=== PATIENT | female | born 1960 | race Caucasian/White ===

== ENCOUNTER 2017-02-13 07:55 | Inpatient (IN) | payer MEDICAID, OTHER ==
[2017-02-13 08:07] VITALS: BMI 39.3
[2017-02-13 09:46] LABS: HEMOGLOBIN 10.6 g/dL (11.0-16.0); LYMPH # 1.3 K/uL (1.0-4.3); MONO # 0.4 K/uL (0.0-0.8); NEUT # 1.6 K/uL (1.8-7.0)
[2017-02-13 09:51] LABS: EOS # 0.3 K/uL (0.0-0.7); EOS % 7.3 % (0.0-4.0); LYMPH % 36.5 % (20.0-40.0); MEAN CELL VOLUME 88.8 fL (81.0-99.0); MEAN CORPUSCULAR HEMOGLOBIN 27.6 pg (27.0-31.0); MEAN CORPUSCULAR HGB CONC 31.1 g/dL (33.0-37.0); MEAN PLATELET VOLUME 10.8 fL (7.2-11.7); MONO % 11.6 % (0.0-10.0); NEUT % 43.6 % (50.0-75.0); NRBC % 0.1 % (0.0-2.0); RBC 3.84 Mil/uL (3.80-5.20); RED CELL DISTRIBUTION WIDTH 16.2 % (11.5-14.5); WHITE BLOOD COUNT 3.6 K/uL (4.8-10.8)
[2017-02-13 09:56] LABS: ALBUMIN 3.6 g/dL (3.5-5.0)
[2017-02-13 09:58] LABS: GFR AFRICAN-AMERICAN > 60; GFR NON-AFRICAN AMERICAN > 60
[2017-02-13 09:59] LABS: ALB/GLOB RATIO 1.1 (1.0-2.1); ALT/SGPT 28 U/L (9-52); AST/SGOT 20 U/L (14-36); BLOOD UREA NITROGEN 18 mg/dL (7-17)
[2017-02-13 10:00] LABS: CALCIUM 9.4 mg/dl (8.6-10.4)
[2017-02-13 10:04] LABS: B-TYPE NATRIURETIC PEPTIDE 82.1 pg/mL (0-900)
[2017-02-13 10:06] LABS: INR 1.1; PROTHROMBIN TIME 12.3 SECONDS (9.7-12.2)
[2017-02-13 10:43] LABS: BARBITURATES, UR NEGATIVE (NEGATIVE)
[2017-02-13 10:46] LABS: PHENCYCLIDINE, UR NEGATIVE (NEGATIVE)
[2017-02-13 10:48] LABS: SQUAMOUS EPITHIAL 9 /hpf (0-5); URINE BILIRUBIN NEGATIVE (NEGATIVE); URINE BLOOD 1+ (NEGATIVE); URINE CLARITY Hazy (Clear); URINE COLOR Yellow (YELLOW); URINE GLUCOSE (UA) NORMAL (Normal); URINE LEUKOCYTE ESTERASE NEG Leu/uL (Negative); URINE NITRATE NEGATIVE (NEGATIVE); URINE PROTEIN NEGATIVE (NEGATIVE); URINE UROBILINOGEN NORMAL mg/dL (0.2-1.0)
--- NOTE | 2017-02-13 10:51 | C.PDOC ---
History Of Present Illness 56 yr old female with PMHx of schizophrenia, presents to the ER stating for the past 2 days she has been having auditory hallucinations that are hurting and states the "voices are beating me up inside". Patient also complains of body pain and pain to bilateral legs. Patient denies chest pain, SOB, nausea, vomiting, headache, SI or HI. Time Seen by Provider: 02/13/17 08:24 Chief Complaint (Nursing): Psychiatric Evaluation History Per: Patient History/Exam Limitations: no limitations Onset/Duration Of Symptoms: Days (2 days) Current Symptoms Are (Timing): Still Present Past Medical History Reviewed: Historical Data, Nursing Documentation, Vital Signs Vital Signs: Last Vital Signs Temp 98.3 F 02/13/17 12:09 Pulse 71 02/13/17 12:09 Resp 18 02/13/17 12:09 BP 120/79 02/13/17 12:09 Pulse Ox 100 02/13/17 12:58 - Medical History PMH: Anxiety, Arthritis, Bipolar Disorder, Depression, Hepatitis (Hepatitis A), HTN, Pulmonary Embolism, Schizophrenia Surgical History: Hernia Repair - [facility] Procedures GROUP PSYCHOTHERAPY (04/06/16) MEDICATION MANAGEMENT (04/06/16) MEDS MGMT FOR SUBSTANCE ABUSE TREATMENT, METHADONE MAINT (04/06/16) Family History: States: No Known Family Hx - Social History Hx Tobacco Use: Yes Hx Alcohol Use: No Hx Substance Use: Yes - Immunization History Hx Tetanus Toxoid Vaccination: No Hx Influenza Vaccination: No Hx Pneumococcal Vaccination: No Review Of Systems Except As Marked, All Systems Reviewed And Found Negative. Constitutional: Positive for: Other ((+) Body pain ) Cardiovascular: Negative for: Chest Pain Gastrointestinal: Negative for: Nausea, Vomiting Musculoskeletal: Positive for: Leg Pain (Bilateral leg pain ) Neurological: Negative for: Headache Psych: Positive for: Other ((+) Auditory hallucinations ). Negative for: Suicidal ideation Physical Exam - Physical Exam Appears: Non-toxic, No Acute Distress Skin: Warm, Dry, No Rash Head: Atraumatic, Normacephalic Eye(s): bilateral: Normal Inspection, PERRL, EOMI Oral Mucosa: Moist Neck: Normal ROM, No Midline Cervical Tenderness, No Paracervical Tenderness, Supple Chest: Symmetrical, No Tenderness Cardiovascular: Rhythm Regular, No Friction Rub, No Murmur Respiratory: Normal Breath Sounds, No Rales, No Rhonchi, No Stridor, No Wheezing Gastrointestinal/Abdominal: Normal Exam, Soft, No Tenderness, No Guarding, No Rebound Extremity: Normal ROM, No Swelling, Other ((+) 2+ pitting edema to bilateral legs ) Neurological/Psych: Oriented x3, Normal Speech, Normal Cranial Nerves, Normal Motor, Normal Sensation Gait: Steady ED Course And Treatment - Laboratory Results Result Diagrams: 02/13/17 09:38 02/13/17 09:38 O2 Sat by Pulse Oximetry: 100 (RA ) Pulse Ox Interpretation: Normal Medical Decision Making Medical Decision Making: PLAN: * Alcohol Serum * CBC * CMP * HCG * Urinalysis Lab results were reviewed and the patient was medically cleared for psych admission. The patient states that she has a history of DVT and was taking xarelto, but has not taken it in 1 week. Patient should continue taking the Xarelto for the DVT on the psych floor. Case was discussed with psychiatrist afsaneh who agrees to admit the patient to his service. Disposition - Disposition Disposition: HOSPITALIZED Disposition Time: 12:58 Condition: FAIR - Clinical Impression Clinical Impression: Schizophrenia - PA / HOUSE MOVER / Resident Statement MD/DO has reviewed & agrees with the documentation as recorded. - Scribe Statement The provider has reviewed the documentation as recorded by the Scribe Angela Gomes All medical record entries made by the Katt were at my direction and personally dictated by me. I have reviewed the chart and agree that the record accurately reflects my personal performance of the history, physical exam, medical decision making, and the department course for this patient. I have also personally directed, reviewed, and agree with the discharge instructions and disposition.
[2017-02-13 11:23] LABS: BENZODIAZEPINES, UR POSITIVE (NEGATIVE); OPIATES, UR POSITIVE (NEGATIVE)
[2017-02-13 12:58] VITALS: O2SAT 100
[2017-02-13] MEDS ORDERED: Aluminum Hydroxide/Magnesium Hydroxide Susp (30 mL) PO PRN (14:14)
--- NOTE | 2017-02-14 12:08 | PCM.BM ---
Treatment Plan Problems - Problems identified on initial assessmt Problem 1 Date Initiated: 02/14/17 Time Initiated: 12:07 Status: Active
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
--- NOTE | 2017-02-14 15:48 | PCM.BM ---
<Cuca Araiza - Last Filed: 02/14/17 15:50> Treatment Plan Problems - Problems identified on initial assessmt depression Date Initiated: 02/14/17 Time Initiated: 11:30 Assessment reference: NA Status: Active Priority: 1 Substance Abuse Date Initiated: 02/14/17 Time Initiated: 11:30 Assessment reference: NA Treatment assets and liabiliti Patient Assests: cooperative, ADL independent, cognitively intact Patient Liabilities: substance abuse - Milieu Protocol Maintain good personal hygiene: daily Encourage regular showers Maintain personal safety: every shift Educate patient to report safety concerns to staff, every shift Monitor environment for contraband/sharps Medication safety: Monitor for expected outcome, potential side effects: every shift, Assess barriers to learning: every shift, Assess readiness for medication education: every shift <Reece Mccoy - Last Filed: 02/17/17 00:22> - Diagnosis (1) Schizophrenia Status: Acute Interventions: 02/17/17 00:22 attend groups and take meds (2) Opioid abuse Status: Acute Interventions: 02/17/17 00:22 attend groups and take meds
--- NOTE | 2017-02-15 10:46 | PCM.PYCHPN ---
Psychiatric Progress Note - Psychiatric Progress Note Patient seen today, length of contact: 17 min Patient Chief Complaint: 'I am feeling much better' Problems Identified/Issues Discussed: Patient seen and evaluated, chart reviewed and discussed with the nurse. Today patient appeared more organized and less internally preoccupied. She reports improvement in her auditory and visual hallucinations. Patient remained isolated, confined and withdrawn. She reports depressed mood but denies any feelings of hopelessness and helplessness. She is taking medication and denied any side effects. She needs more time for stabilization. Supportive therapy and psychoeducation were given. Medication Change: Yes (methadone taper) Medical Record Reviewed: Yes Mental Status Examination - Cognitive Function Orientation: Person, Place, Situation, Time Memory: Intact Attention: WNL Concentration: Poor Association: WNL Fund of Knowledge: Poor - Mood Mood: Depressed, Anxious - Affect Affect: Constricted, Blunted, Depressed - Speech Speech: Soft - Formal Thought Process Formal Thought Process: Hallucinations, Loosening of associations - Suicidal Ideation Suicidal Ideation: No - Homicidal Ideation Homicidal Ideation: No Goal/Treatment Plan - Goal/Treatment Plan Need for Continued Stay: Discharge may exacerbated symptoms, Severe functional impairment Progress Toward Problem(s) and Goals/Treatment Plan: Schizoaffective disorder depressed type CBT Psychoeducation Supportive therapy, group therapy, individual therapy Prolixin 5 mg by mouth twice a day Neurontin 100 mg by mouth 3 times a day Trazodone 50 mg by mouth daily at bedtime Opioid use disorder severe CBT Psychoeducation Supportive therapy, individual therapy Use [place] for abstinence Opioid withdrawal CBT Psychoeducation Supportive therapy, individual therapy Clonidine when necessary Methadone taper Alcohol use disorder severe CBT Psychoeducation Supportive therapy, individual therapy Ativan 1 mg po Q6 hr pen Use [place] for abstinence - Smoking Cessation Smoking Cessation Initiated: No
[2017-02-15 14:07] VITALS: TEMP 98.2
[2017-02-16 09:51] VITALS: RESP 20
[2017-02-16 10:02] VITALS: BP 132/83; PULSE 77
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
== END 2017-02-16 13:14 | disposition home or self-care (01) | DRG 430 ==
LOC: C.ER 07:55 → C.5E 12:57
PROVIDERS: ADMIT Psychiatry & Neurology Psychiatry; ATTEND Psychiatry & Neurology Psychiatry
PROC: GZHZZZZ Group Psychotherapy (ICD-10-PCS; principal; 2017-02-13)
PROC: HZ42ZZZ Group Counseling for Substance Abuse Treatment, Cognitive-Behavioral (ICD-10-PCS; 2017-02-13)
PROC: HZ2ZZZZ Detoxification Services for Substance Abuse Treatment (ICD-10-PCS; 2017-02-13)
DX: F25.1 Schizoaffective disorder, depressive type (principal); Z59.0 Homelessness; I10 Essential (primary) hypertension; B15.9 Hepatitis A without hepatic coma; F11.23 Opioid dependence with withdrawal; F31.9 Bipolar disorder, unspecified; F41.1 Generalized anxiety disorder; F10.10 Alcohol abuse, uncomplicated; Z79.899 Other long term (current) drug therapy; Z86.711 Personal history of pulmonary embolism; Z87.891 Personal history of nicotine dependence

== ENCOUNTER 2017-04-27 17:08 | Emergency (ER) | payer MEDICAID, OTHER ==
[2017-04-27 17:12] VITALS: BMI 43.9
--- NOTE | 2017-04-27 17:42 | C.PDOC ---
History Of Present Illness 56-year-old female, PMHx includes heroin and alcohol abuse, generalized anxiety disorder, bipolar disorder, and depression. She reports a history of multiple psychiatric hospitalizations for depression, and anxiety, presents to the emergency department with complaints of auditory hallucinations, abdominal cramping, that is associated with non-bloody/watery diarrhea, and leg swelling. Patient denies nausea/vomiting, fevers, chills, chest pain or shortness of breath. No other complaints at this time. Time Seen by Provider: 04/27/17 17:41 Chief Complaint (Nursing): Psychiatric Evaluation History Per: Patient History/Exam Limitations: no limitations Onset/Duration Of Symptoms: Days Current Symptoms Are (Timing): Still Present Past Medical History Reviewed: Historical Data, Nursing Documentation, Vital Signs Vital Signs: Last Vital Signs Temp 98.9 F 04/27/17 17:12 Pulse 62 04/27/17 17:12 Resp 18 04/27/17 17:12 BP 140/93 H 04/27/17 17:12 Pulse Ox 98 04/27/17 18:09 - Medical History PMH: Anxiety, Arthritis, Bipolar Disorder, Depression, Hepatitis (Hepatitis A), HTN, Pulmonary Embolism, Schizophrenia Denies: Diabetes, HIV, Chronic Kidney Disease, Seizures, Sexually Transmitted Disease Surgical History: Hernia Repair - [facility] Procedures DETOXIFICATION SERVICES FOR SUBSTANCE ABUSE TREATMENT (02/13/17) GROUP SUB PLANT MANAGER FOR SUBSTANCE ABUSE, COGNITIVE BEHAVIORAL (02/13/17) GROUP PSYCHOTHERAPY (02/13/17) MEDICATION MANAGEMENT (04/06/16) MEDS MGMT FOR SUBSTANCE ABUSE TREATMENT, METHADONE MAINT (04/06/16) Family History: States: No Known Family Hx - Social History Hx Tobacco Use: Yes Hx Alcohol Use: No Hx Substance Use: Yes (heroin) - Immunization History Hx Tetanus Toxoid Vaccination: No Hx Influenza Vaccination: No Hx Pneumococcal Vaccination: No Review Of Systems Except As Marked, All Systems Reviewed And Found Negative. Constitutional: Negative for: Fever Cardiovascular: Negative for: Chest Pain, Palpitations Respiratory: Negative for: Shortness of Breath Gastrointestinal: Positive for: Abdominal Pain, Diarrhea. Negative for: Nausea , Vomiting Neurological: Negative for: Weakness, Numbness Psych: Positive for: Other (auditory hallucinations.). Negative for: Suicidal ideation Physical Exam - Physical Exam Appears: Non-toxic, No Acute Distress Skin: Warm, Dry, No Rash Head: Atraumatic, Normacephalic Eye(s): bilateral: Normal Inspection, PERRL Nose: Normal Oral Mucosa: Moist Lips: Normal Appearing Neck: Normal ROM Cardiovascular: Rhythm Regular, No Murmur Respiratory: Normal Breath Sounds, No Accessory Muscle Use Gastrointestinal/Abdominal: Soft, No Tenderness Extremity: No Deformity, Swelling Neurological/Psych: Oriented x3, Normal Speech ED Course And Treatment - Laboratory Results Result Diagrams: 04/27/17 17:37 04/27/17 17:37 O2 Sat by Pulse Oximetry: 98 Progress - Re-Evaluation Re-evaluation Note: 04/27/17 18:50 PENDING UA - Data Reviewed Data Reviewed: Lab, Old records Disposition - Disposition Disposition Time: 19:00 Condition: STABLE Forms: [employer] (Belarusian) - Clinical Impression Clinical Impression: Auditory hallucinations - Scribe Statement The provider has reviewed the documentation as recorded by the Scribe (Patel Ha) All medical record entries made by the Scribe were at my direction and personally dictated by me. I have reviewed the chart and agree that the record accurately reflects my personal performance of the history, physical exam, medical decision making, and the department course for this patient. I have also personally directed, reviewed, and agree with the discharge instructions and disposition. Physician Patient Turnover Patient Signed Over To: Obi Patel Handoff Comments: KAMILLA CHIRINOS, PAMELA, ZANAO
[2017-04-27 17:46] LABS: BASO % 0.6 % (0.0-2.0); EOS % 1.1 % (0.0-4.0); HEMATOCRIT 35.6 % (34.0-47.0); LYMPH # 1.5 K/uL (1.0-4.3); MEAN CORPUSCULAR HEMOGLOBIN 28.3 pg (27.0-31.0); MEAN CORPUSCULAR HGB CONC 32.5 g/dL (33.0-37.0); MEAN PLATELET VOLUME 10.7 fL (7.2-11.7); MONO # 0.4 K/uL (0.0-0.8); RED CELL DISTRIBUTION WIDTH 16.5 % (11.5-14.5)
[2017-04-27 17:48] LABS: CHLORIDE 100 mmol/L (98-107)
[2017-04-27 17:49] LABS: POTASSIUM 3.6 mmol/L (3.6-5.2); SODIUM 141 mmol/L (132-148)
[2017-04-27 17:51] LABS: ALB/GLOB RATIO 1.2 (1.0-2.1); ALKALINE PHOSPHATASE 98 U/L (38-126); AST/SGOT 19 U/L (14-36); BILIRUBIN,TOTAL 0.4 mg/dL (0.2-1.3); CARBON DIOXIDE 28 mmol/L (22-30); GFR AFRICAN-AMERICAN > 60
[2017-04-27 17:52] LABS: ALCOHOL SERUM < 10 mg/dl (0-10); ALT/SGPT 27 U/L (9-52); BLOOD UREA NITROGEN 11 mg/dL (7-17); CALCIUM 9.6 mg/dl (8.6-10.4); GLUCOSE,RANDOM 88 mg/dL (65-105)
[2017-04-27] MEDS ORDERED: Atropine-Diphenoxylate 0.025-2.5 mg Tab PO STA (17:58)
[2017-04-27] MEDS ORDERED: Atropine-Diphenoxylate 0.025-2.5 mg Tab ONE (19:04)
[2017-04-27 21:57] LABS: RBC URINE 1 /hpf (0-3); URINE BILIRUBIN NEGATIVE (NEGATIVE); URINE BLOOD NEGATIVE (NEGATIVE); URINE COLOR Yellow (YELLOW); URINE GLUCOSE (UA) NORMAL (Normal); URINE KETONE NEGATIVE (NEGATIVE); URINE LEUKOCYTE ESTERASE NEG Leu/uL (Negative); URINE PROTEIN NEGATIVE (NEGATIVE); URINE UROBILINOGEN NORMAL mg/dL (0.2-1.0); WBC URINE 2 /hpf (0-5)
[2017-04-28 02:58] VITALS: RESP 18; O2SAT 99
[2017-04-28 04:34] VITALS: BP 131/79; PULSE 51; TEMP 98.5
--- NOTE | 2017-04-28 09:57 | RAD ---
HISTORY: psych adm, r/o TB COMPARISON: No prior. FINDINGS: LUNGS: Mild venous congestion. Patchy left basilar airspace opacity. Small left pleural effusion. PLEURA: As above. CARDIOVASCULAR: Cardiomegaly. OSSEOUS STRUCTURES: Degenerative changes in the spine and shoulders. VISUALIZED UPPER ABDOMEN: Normal. OTHER FINDINGS: None. IMPRESSION: Mild venous congestion. Patchy left basilar airspace opacity. Small left pleural effusion. Cardiomegaly.
== END 2017-04-28 04:36 | disposition short-term general hospital (02) ==
LOC: C.ER 17:08
DX: R44.0 Auditory hallucinations (principal); I10 Essential (primary) hypertension

== ENCOUNTER 2017-05-24 06:26 | Inpatient (IN) | payer MEDICAID, OTHER ==
[2017-05-24 06:26] VITALS: BMI 43.9
[2017-05-24 08:10] LABS: BASO % 0.4 % (0.0-2.0); EOS # 0.1 K/uL (0.0-0.7); EOS % 1.3 % (0.0-4.0); HEMATOCRIT 35.2 % (34.0-47.0); LYMPH # 1.3 K/uL (1.0-4.3); LYMPH % 28.7 % (20.0-40.0); MEAN CORPUSCULAR HEMOGLOBIN 28.7 pg (27.0-31.0); MEAN CORPUSCULAR HGB CONC 32.6 g/dL (33.0-37.0); MEAN PLATELET VOLUME 10.8 fL (7.2-11.7); MONO # 0.4 K/uL (0.0-0.8); MONO % 8.6 % (0.0-10.0); WHITE BLOOD COUNT 4.5 K/uL (4.8-10.8)
[2017-05-24 08:25] LABS: CHLORIDE 99 mmol/L (98-107)
[2017-05-24 08:26] LABS: POTASSIUM 3.6 mmol/L (3.6-5.2); SODIUM 133 mmol/L (132-148)
[2017-05-24 08:28] LABS: ALB/GLOB RATIO 1.5 (1.0-2.1); ALKALINE PHOSPHATASE 104 U/L (38-126); ALT/SGPT 35 U/L (9-52); AST/SGOT 26 U/L (14-36); BILIRUBIN,TOTAL 0.6 mg/dL (0.2-1.3); BLOOD UREA NITROGEN 13 mg/dL (7-17); CARBON DIOXIDE 26 mmol/L (22-30); GFR AFRICAN-AMERICAN > 60; GLUCOSE,RANDOM 123 mg/dL (65-105); TOTAL PROTEIN 6.5 g/dL (6.3-8.3)
[2017-05-24 08:29] LABS: ALCOHOL SERUM < 10 mg/dl (0-10); CALCIUM 9.3 mg/dl (8.6-10.4)
--- NOTE | 2017-05-24 08:41 | C.PDOC ---
History Of Present Illness 57 year old female, with PMHx of heroin and alcohol abuse, anxiety, and bipolar disorder, presents to ED for evaluation of depression and suicidal ideation. Pt has PMHx of HTN, notes she is not compliant with her medications. Patient denies HI, chest pain, shortness of breath, abdominal pain, fever, or any other active physical complaints at this time. Time Seen by Provider: 05/24/17 07:01 Chief Complaint (Nursing): Psychiatric Evaluation History Per: Patient History/Exam Limitations: no limitations Onset/Duration Of Symptoms: Gradual Current Symptoms Are (Timing): Still Present Suicide/Self Injury Attempted (Context): None Modifying Factor(s): Alcohol Severity: None Pain Scale Rating Of: 0 Associated Symptoms: Depression, Suicidal Thoughts Involuntary Hold By: None Recent travel outside of the [place]: No Additional History Per: Prior Records Past Medical History Reviewed: Historical Data, Nursing Documentation, Vital Signs Vital Signs: Last Vital Signs Temp 99.1 F 05/24/17 15:03 Pulse 55 L 05/24/17 15:03 Resp 20 05/24/17 15:03 BP 175/85 H 05/24/17 15:03 Pulse Ox 100 05/24/17 15:03 - Medical History PMH: Anxiety, Arthritis, Bipolar Disorder, Depression, Hepatitis (Hepatitis A), HTN, Pulmonary Embolism, Schizophrenia Denies: Diabetes, HIV, Chronic Kidney Disease, Seizures, Sexually Transmitted Disease Surgical History: Hernia Repair - [facility] Procedures DETOXIFICATION SERVICES FOR SUBSTANCE ABUSE TREATMENT (02/13/17) GROUP ELECTRONIC ASSEMBLER GROUP LEADER FOR SUBSTANCE ABUSE, COGNITIVE BEHAVIORAL (02/13/17) GROUP PSYCHOTHERAPY (02/13/17) MEDICATION MANAGEMENT (04/06/16) MEDS MGMT FOR SUBSTANCE ABUSE TREATMENT, METHADONE MAINT (04/06/16) Family History: States: Unknown Family Hx - Social History Hx Tobacco Use: Yes Hx Alcohol Use: Yes Hx Substance Use: Yes (heroin) - Immunization History Hx Tetanus Toxoid Vaccination: No Hx Influenza Vaccination: No Hx Pneumococcal Vaccination: No Review Of Systems Except As Marked, All Systems Reviewed And Found Negative. Constitutional: Negative for: Fever, Chills Cardiovascular: Negative for: Chest Pain, Palpitations Respiratory: Negative for: Shortness of Breath Gastrointestinal: Negative for: Nausea, Vomiting, Abdominal Pain Neurological: Negative for: Headache Psych: Positive for: Depression, Suicidal ideation Physical Exam - Physical Exam Appears: Non-toxic, No Acute Distress Skin: Normal Color, Warm, Dry Head: Atraumatic, Normacephalic Eye(s): bilateral: Normal Inspection, EOMI Nose: Normal Oral Mucosa: Moist Neck: Normal ROM, Supple Chest: Symmetrical Cardiovascular: Rhythm Regular Respiratory: Normal Breath Sounds, No Accessory Muscle Use Gastrointestinal/Abdominal: Soft, No Tenderness Extremity: Normal ROM Neurological/Psych: Oriented x3, Normal Speech ED Course And Treatment - Laboratory Results Result Diagrams: 05/24/17 08:01 05/24/17 08:01 O2 Sat by Pulse Oximetry: 100 (RA) Pulse Ox Interpretation: Normal Progress Note: Blood work, UA ordered and reviewed. On re-eval, patient is resting comfortably, and is in no acute distress. Pt is requesting anxiety medicaiton. Atarax ordered. Patient was assessed by Dr. Mejia and admitted for schizophrenia, Disposition - Disposition Disposition: HOSPITALIZED Disposition Time: 15:00 Condition: STABLE - Clinical Impression Clinical Impression: Schizophrenia, Major depression - PA / CAD SPECIALIST / Resident Statement MD/DO has reviewed & agrees with the documentation as recorded. - Scribe Statement The provider has reviewed the documentation as recorded by the Scribe Luciano Marcelino All medical record entries made by the Scribe were at my direction and personally dictated by me. I have reviewed the chart and agree that the record accurately reflects my personal performance of the history, physical exam, medical decision making, and the department course for this patient. I have also personally directed, reviewed, and agree with the discharge instructions and disposition.
[2017-05-24 10:18] LABS: RBC URINE < 1 /hpf (0-3); URINE BILIRUBIN NEGATIVE (NEGATIVE); URINE BLOOD NEGATIVE (NEGATIVE); URINE COLOR Yellow (YELLOW); URINE GLUCOSE (UA) NORMAL (Normal); URINE KETONE 1+ mg/dL (NEGATIVE); URINE LEUKOCYTE ESTERASE NEG Leu/uL (Negative); URINE PROTEIN NEGATIVE (NEGATIVE); URINE UROBILINOGEN NORMAL mg/dL (0.2-1.0); WBC URINE 1 /hpf (0-5)
--- NOTE | 2017-05-24 16:30 | PCM.BM ---
Treatment Plan Problems - Problems identified on initial assessmt Depression Date Initiated: 05/24/17 Time Initiated: 16:29 Assessment reference: NA Status: Active Subsance Date Initiated: 05/24/17 Time Initiated: 16:32 Assessment reference: NA Status: Active Treatment assets and liabiliti Patient Assests: cooperative, ADL independent, cognitively intact
--- NOTE | 2017-05-24 16:34 | PCM.BM ---
<Leonila Jerome M - Last Filed: 05/24/17 16:33> Treatment Plan Problems - Problems identified on initial assessmt Depression Date Initiated: 05/24/17 Time Initiated: 16:29 Assessment reference: NA Status: Active Subsance Date Initiated: 05/24/17 Time Initiated: 16:32 Assessment reference: NA Status: Active Treatment assets and liabiliti Patient Assests: cooperative, motivated, ADL independent, physically healthy, negotiates basic needs, cognitively intact Patient Liabilities: live alone, financial problems, poor support system, substance abuse <Rebeca Webb - Last Filed: 05/26/17 13:21> Family Contact Family involvement: Famliy/SO not involved - Goals for Treatment Patient goals for treatment: "I want to go home." Discharge/Continuing Care - Education Needs Education Needs: Patient Medication, Patient Coping Skills, Patient Placement options, Patient Community resources - Discharge Discharge Criteria: Tolerates medication w/o severe side effects, No longer exhibiting s/s of withdrawal, Reduction of target symptoms Discharge to:: Home - Treatment Team Participation Discussed with Family/SO: No Was Patient/Family/SO present at Treatment Team Meeting: Yes <Robert Lynn M - Last Filed: 05/26/17 18:36> - Diagnosis (1) Schizoaffective disorder Status: Acute Interventions: Assess/adjust medications daily and/or as needed SEE patient on him individual basis 7x/week to assess status of hallucinations. Discuss risks, benefits, side effects and alternatives of medications. 05/26/17 18:35 (2) Opiate dependence Status: Acute Interventions: Assess 7x/week regarding severity of withdrawal Educated regarding risks, benefits, side effects and alternatives of medications Used motivational interview for abstinence Used CBT for relapse prevention Medication management for withdrawal symptoms Encouraged medication assisted treatment 05/26/17 18:34
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
[2017-05-26 08:03] VITALS: BP 166/90; PULSE 64; RESP 16; TEMP 98.1; O2SAT 99
[2017-05-26] MEDS ORDERED: guaiFENesin 100 mg/5 ml Syrup UD PO PRN (13:24)
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
[2017-05-27] MEDS ORDERED: Influenza Vaccine 60 mcg/0.5 mL SYR (4YR UP) IM ONE (10:00)
== END 2017-05-26 14:30 | disposition home or self-care (01) | DRG 744 ==
LOC: C.ER 06:26 → C.5E 14:31
PROVIDERS: ADMIT Psychiatry & Neurology Psychiatry; ATTEND Psychiatry & Neurology Psychiatry
PROC: HZ2ZZZZ Detoxification Services for Substance Abuse Treatment (ICD-10-PCS; principal; 2017-05-24)
PROC: HZ59ZZZ Individual Psychotherapy for Substance Abuse Treatment, Supportive (ICD-10-PCS; 2017-05-24)
DX: F11.23 Opioid dependence with withdrawal (principal); F25.9 Schizoaffective disorder, unspecified; F10.10 Alcohol abuse, uncomplicated; Y90.0 Blood alcohol level of less than 20 mg/100 ml

== ENCOUNTER 2017-08-25 12:38 | Inpatient (IN) | payer MEDICAID, OTHER ==
[2017-08-25 12:39] VITALS: BMI 43.9
--- NOTE | 2017-08-25 14:10 | C.PDOC ---
History Of Present Illness 57 y/o female presents to the ER for psychiatric evaluation. Patient states that she wants to hurt herself and she wants to overdose on meds. Patient denies having any other medical complaints. Time Seen by Provider: 08/25/17 13:55 Chief Complaint (Nursing): Psychiatric Evaluation History Per: Patient History/Exam Limitations: no limitations Onset/Duration Of Symptoms: Days Current Symptoms Are (Timing): Still Present Past Medical History Reviewed: Historical Data, Nursing Documentation, Vital Signs Vital Signs: Last Vital Signs Temp 98.6 F 08/25/17 16:52 Pulse 55 L 08/25/17 16:52 Resp 18 08/25/17 16:52 BP 123/77 08/25/17 16:52 Pulse Ox 99 08/25/17 18:08 - Medical History PMH: Anxiety, Arthritis, Bipolar Disorder, Depression, Hepatitis (Hepatitis A), HTN, Pulmonary Embolism, Schizophrenia Denies: Diabetes, HIV, Chronic Kidney Disease, Seizures, Sexually Transmitted Disease Surgical History: Hernia Repair - [facility] Procedures DETOXIFICATION SERVICES FOR SUBSTANCE ABUSE TREATMENT (05/24/17) GROUP BATTERY CHECKER FOR SUBSTANCE ABUSE, COGNITIVE BEHAVIORAL (02/13/17) GROUP PSYCHOTHERAPY (02/13/17) INDIV PSYCHOTHERAPY FOR SUBSTANCE ABUSE TREATMENT, SUPPORT (05/24/17) MEDICATION MANAGEMENT (04/06/16) MEDS MGMT FOR SUBSTANCE ABUSE TREATMENT, METHADONE MAINT (04/06/16) Family History: States: No Known Family Hx - Social History Hx Tobacco Use: Yes Hx Alcohol Use: Yes Hx Substance Use: Yes - Immunization History Hx Tetanus Toxoid Vaccination: No Hx Influenza Vaccination: No Hx Pneumococcal Vaccination: No Review Of Systems Except As Marked, All Systems Reviewed And Found Negative. Constitutional: Negative for: Fever, Chills Neurological: Negative for: Weakness, Numbness Psych: Positive for: Suicidal ideation Physical Exam - Physical Exam Appears: No Acute Distress Skin: Normal Color, Warm Head: Atraumatic, Normacephalic Eye(s): bilateral: Normal Inspection, PERRL Nose: Normal Oral Mucosa: Moist Neck: Supple Chest: Symmetrical Cardiovascular: Rhythm Regular Respiratory: Normal Breath Sounds, No Accessory Muscle Use, No Rales, No Rhonchi , No Wheezing Extremity: Normal ROM Neurological/Psych: Oriented x3, Normal Speech, Normal Cognition, Normal Motor, Normal Sensation ED Course And Treatment - Laboratory Results Result Diagrams: 08/25/17 14:10 08/25/17 14:10 O2 Sat by Pulse Oximetry: 99 (RA) Pulse Ox Interpretation: Normal Medical Decision Making Medical Decision Making: Plan: --Labs --Urinalysis --Urine Drug Screen Patient is medically cleared for psychiatric admission. Disposition - Disposition Disposition: HOSPITALIZED Disposition Time: 06:00 Condition: STABLE - Clinical Impression Clinical Impression: Schizoaffective disorder - Scribe Statement The provider has reviewed the documentation as recorded by the Polinaibe Tana Barber Provider Attestation: All medical record entries made by the Scribe were at my direction and personally dictated by me. I have reviewed the chart and agree that the record accurately reflects my personal performance of the history, physical exam, medical decision making, and the department course for this patient. I have also personally directed, reviewed, and agree with the discharge instructions and disposition. Decision To Admit - Pt Status Changed To: Hospital Disposition Of: Inpatient - Admit Certification Admit to Inpatient:: After my assessment, the patient will require hospitalization for at least two midnights. This is because of the severity of symptoms shown, intensity of services needed, and/or the medical risk in this patient being treated as an outpatient. - InPatient: Physician Admission Certification: I certify that this patient requires 2 or more midnights of care for the following reason:: needs inpt psych - . Bed Request Type: Psychiatry Admitting Physician: Reece Mccoy Patient Diagnosis: Schizoaffective disorder
[2017-08-25 14:16] LABS: BASO # 0.1 K/uL (0.0-0.2); BASO % 1.9 % (0.0-2.0); EOS # 0.1 K/uL (0.0-0.7); EOS % 2.7 % (0.0-4.0); HEMOGLOBIN 12.6 g/dL (11.0-16.0); LYMPH # 1.7 K/uL (1.0-4.3); LYMPH % 45.4 % (20.0-40.0); MEAN CELL VOLUME 88.1 fL (81.0-99.0); MEAN CORPUSCULAR HEMOGLOBIN 28.6 pg (27.0-31.0); MEAN CORPUSCULAR HGB CONC 32.4 g/dL (33.0-37.0); MONO # 0.4 K/uL (0.0-0.8); MONO % 11.1 % (0.0-10.0); NEUT # 1.5 K/uL (1.8-7.0); NEUT % 38.9 % (50.0-75.0); RBC 4.4 Mil/uL (3.80-5.20); RED CELL DISTRIBUTION WIDTH 16.1 % (11.5-14.5); WHITE BLOOD COUNT 3.8 K/uL (4.8-10.8)
[2017-08-25 14:33] LABS: ACETAMINOPHEN < 10.0 ug/mL (10.0-30.0); SALICYLATE < 1.0 mg/dL 1
[2017-08-25 14:37] LABS: ALB/GLOB RATIO 1.2 (1.0-2.1); ALBUMIN 3.9 g/dL (3.5-5.0); ALT/SGPT 31 U/L (9-52); AST/SGOT 26 U/L (14-36); BLOOD UREA NITROGEN 11 mg/dL (7-17); CALCIUM 8.7 mg/dl (8.6-10.4); GFR AFRICAN-AMERICAN > 60; GFR NON-AFRICAN AMERICAN > 60
[2017-08-25 15:29] LABS: SQUAMOUS EPITHIAL 15 /hpf (0-5); URINE BACTERIA RARE (<OCC); URINE BILIRUBIN NEGATIVE (NEGATIVE); URINE BLOOD NEGATIVE (NEGATIVE); URINE CLARITY Hazy (Clear); URINE COLOR Yellow (YELLOW); URINE GLUCOSE (UA) NORMAL (Normal); URINE LEUKOCYTE ESTERASE NEG Leu/uL (Negative); URINE NITRATE NEGATIVE (NEGATIVE); URINE PROTEIN 1+ mg/dL (NEGATIVE); URINE UROBILINOGEN NORMAL mg/dL (0.2-1.0)
[2017-08-25 15:41] LABS: BARBITURATES, UR NEGATIVE (NEGATIVE); BENZODIAZEPINES, UR NEGATIVE (NEGATIVE); PHENCYCLIDINE, UR NEGATIVE (NEGATIVE)
[2017-08-25 15:43] LABS: OPIATES, UR POSITIVE (NEGATIVE)
--- NOTE | 2017-08-25 17:56 | PCM.BM ---
<Vincent Villafuerte - Last Filed: 08/25/17 17:54> Treatment Plan Problems - Problems identified on initial assessmt Depression Date Initiated: 08/25/17 Time Initiated: 17:00 Assessment reference: NA Status: Active Substance Abuse Date Initiated: 08/25/17 Time Initiated: 17:00 Assessment reference: NA Status: Active Treatment assets and liabiliti Patient Assests: negotiates basic needs, cognitively intact, cooperative, motivated, self-reliant, ADL independent, physically healthy Patient Liabilities: live alone (Homeless), financial problems, poor support system (No family), dietary restrictions (Diabetic), substance abuse (Heroin), medical problems (Diabetes) - Milieu Protocol Maintain good personal hygiene: daily Encourage regular showers, every shift Remind patient to perform daily oral care, every shift Assist patient to perform ADL's Conduct patient checks and document Observation sheet: Q15 minutes (For safety) Maintain personal safety: every shift Educate patient to report safety concerns to staff, every shift Monitor environment for contraband/sharps Medication safety: Monitor for expected outcome, potential side effects: every shift, Assess barriers to learning: every shift, Assess readiness for medication education: every shift <Rebeca Webb - Last Filed: 08/27/17 10:47> Family Contact Family involvement: Famliy/SO not involved - Goals for Treatment Patient goals for treatment: "I need an outpatient program." Discharge/Continuing Care - Education Needs Education Needs: Patient Medication, Patient Coping Skills, Patient Placement options, Patient Community resources - Discharge Discharge Criteria: Tolerates medication w/o severe side effects, No longer exhibiting s/s of withdrawal, Reduction of target symptoms Discharge to:: Home - Treatment Team Participation Discussed with Family/SO: No Was Patient/Family/SO present at Treatment Team Meeting: Yes <Reece Mccoy - Last Filed: 08/27/17 10:51> - Diagnosis (1) Major depression Status: Acute Interventions: 08/27/17 10:49 * Assess/adjust medications daily and /or as needed * See patient on an individual basis 7x/week to assess symptoms of depression * Monitor for side effects & effectiveness of medications (2) Opiate dependence Status: Acute Interventions: 08/27/17 10:50 * Assess 7x/week regarding severity of withdrawal * Educate regarding risks, benefits, side effects and alternatives of medications * Use Motivational Interviewing for abstinence * Use CBT for relapse prevention * Medication management for withdrawal symptoms * Encourage medication assisted treatment *
[2017-08-25] MEDS ORDERED: Aluminum Hydroxide/Magnesium Hydroxide Susp (30 mL) PO PRN (18:33)
--- NOTE | 2017-08-26 10:30 | PCM.PSYCH ---
Initial Psychiatric Evaluation - Initial Psychiatric Evaluation Type of Admission: Voluntary Legal Status: Capacity Chief Complaint (in patient's own words): "I wanted to hurt myself." History of Present Illness and Precipitating Events: Patient is a 57 year old female who is reporting with suicidal ideation and heroin use disorder. She is single, no children, and currently homeless. She states she is unemployed. Patient states she was feeling very depressed yesterday and tried to kill herself by using "a lot of heroin." She states the she has been feeling increasingly more depressed over the last few months due to her life situation of addiction/homelessness. She currently feels depressed but does not have thoughts of hurting herself or others. She states she has two prior attempts of suicide, the most recent in June 2017. She has been hospitalized 2 times in the past for suicidal ideation. She denies any therapy or psychiatric follow up outside of the hospital. She denies paranoia and hallucinations at this time. Patient states she also has used heroin since she was 31 years old. She uses 7 bags daily, intranasal. Her last time using was yesterday. Currently she is experiencing withdrawal symptoms of sweating, yawning, diarrhea, muscle cramping , anxiety. She states she occasionally drinks 2 pints of hard liquor and uses xanax sporadically. Patient states she "has been to too many detox programs to remember." She denies any prior rehab. Her plan following discharge is to enter a intermediate [facility] in patient rehab program to turn her life around. PMH: Denies Family psych hx: Brother and sister have opioid use disorder Current Medications: Active Medications Generic Name Dose Route Start Last Admin Trade Name Freq PRN Reason Stop Dose Admin Al Hydrox/Mg Hydrox/Simethicone 30 ml 08/25/17 18:33 Maalox 30 Ml PO TID PRN Indigestion / Heartburn Benztropine Mesylate 1 mg 08/25/17 18:45 08/26/17 10:13 Cogentin PO 1 mg BID MARIELLE Administration Benztropine Mesylate 1 mg 08/25/17 18:38 Cogentin PO Q6 PRN Other Clonidine HCl 0.1 mg 08/25/17 18:33 Catapres PO Q8 PRN COWS Score More or Equal to 5 Dicyclomine HCl 20 mg 08/25/17 18:34 Bentyl PO Q6 PRN Other Fluphenazine HCl 10 mg 08/25/17 18:45 08/26/17 10:13 Prolixin PO 10 mg BID MARIELLE Administration Gabapentin 300 mg 08/26/17 10:00 08/26/17 10:12 Neurontin PO 300 mg TID MARIELLE Administration Haloperidol 5 mg 08/25/17 18:37 Haldol PO Q6 PRN Agitation Ibuprofen 400 mg 08/25/17 18:37 Motrin Tab PO Q6 PRN Pain, moderate (4-7) Loperamide HCl 2 mg 08/25/17 18:33 08/26/17 06:25 Imodium PO 2 mg Q8 PRN Administration Diarrhea Ondansetron HCl 4 mg 08/25/17 18:33 Zofran Tab PO Q8 PRN Nausea/Vomiting Trazodone HCl 50 mg 08/25/17 22:00 08/25/17 22:07 Desyrel PO Not Given HS MARIELLE Past Psychiatric History - Past Psychiatric History Previous Treatment History: Inpatient Pertinent Medical Hx (Current Medical&Sleep Prob, Allergies): Allergies Allergy/AdvReac Type Severity Reaction Status Date / Time FISH Allergy Verified 05/24/17 06:53 latex Allergy Verified 05/24/17 06:53 Latex, Natural Rubber Allergy Verified 05/24/17 06:53 PORK Allergy Verified 05/24/17 06:53 Gabapentin [Neurontin] 300 mg PO TID #45 cap 05/05/17 Ibuprofen [Motrin Tab] 600 mg PO Q6H PRN #14 tab 05/05/17 Multimineral/Multivitamin [Therapeutic-M Tab] 1 tab PO 0800 #14 tab 05/05/17 metFORMIN [glucOPHAGE] 500 mg PO BID 08/25/17 Review of Systems - Review of Systems All systems: reviewed and no additional remarkable complaints except - Psychiatric Psychiatric: Anxiety, Depression, Irritability, Suicidal Ideation Mental Status Examination - Personal Presentation Personal Presentation: Looks stated age - Affect Affect: Constricted, Depressed - Motor Activity Motor Activity: Calm - Reliability in Providing Information Reliability in Providing Information: Fair - Speech Speech: Organized - Mood Mood: Depressed, Anxious - Formal Thought Process Formal Thought Process: No Impairment - Obsessions/Compulsions Obsessions: No Compulsions: No - Cognitive Functions Orientation: Person, Place, Situation, Time Sensorium: Alert Attention/Concentration: Attentive Abstract Thinking: [place] Estimate of Intelligence: Below average Judgement: Imparied, as evidence by: Poor judgement, Imparied, as evidence by: Lack of insight into illness - Risk Risk: Suicidal, Withdrawal, Diminished functioning - Limitations Limitations: Living alone DSM 5 DX - DSM 5 DSM 5 Diagnosis: Major depressive disorder, recurrent severe without psychotic features General Anxiety Disorder Opioid use disorder, moderate Opioid use withdrawal Alcohol use disorder severe - Recommended/Plan of Treatment Treatment Recommendations and Plan of Treatment: Major depressive disorder, recurrent severe without psychotic features General Anxiety Disorder Opioid use disorder, moderate Opioid use withdrawal Alcohol use disorder severe Zoloft 50 mg PO Daily D/C Prolixin 10 mg PO BID Methadone taper As needed medications Gabapentin for augmentation Attend groups and activities Supportive therapy and psychoeducation [place] for abstinence CBT for relapse prevention Encourage MAT Refer to rehab or IOP Attend self-help groups as well Projected ELOS: 5 days - Smoking Cessation Smoking Cessation Initiated: No
--- NOTE | 2017-08-27 10:52 | PCM.PYCHPN ---
Psychiatric Progress Note - Psychiatric Progress Note Patient seen today, length of contact: 16 min Patient Chief Complaint: "I still feel the withdrawals " Problems Identified/Issues Discussed: The pt is seen, chart reviewed, case discussed with staff. Patient reports depressed mood and feelings of hopelessness and helplessness. Patient remained isolated, confined and withdrawn. Patient reports withdrawal symptoms including nausea, headaches, cramps and sweating. She states she was unable to sleep through the night. The pt is compliant with medications and reports no side-effects. Symptoms are improving but needs more time to stabilize. After care discussed, support and psychoeducation given. Medication Change: Yes (detox changes daily ) Medical Record Reviewed: Yes Mental Status Examination - Cognitive Function Orientation: Person, Place, Situation, Time Memory: Intact Attention: Poor Concentration: WNL Association: Loose Fund of Knowledge: WNL - Mood Mood: Depressed, Anxious - Affect Affect: Constricted, Depressed - Speech Speech: Soft - Formal Thought Process Formal Thought Process: No Impairment - Suicidal Ideation Suicidal Ideation: No - Homicidal Ideation Homicidal Ideation: No Goal/Treatment Plan - Goal/Treatment Plan Need for Continued Stay: Discharge may exacerbated symptoms, Severe functional impairment Progress Toward Problem(s) and Goals/Treatment Plan: Zoloft 50 mg PO Daily D/C Prolixin 10 mg PO BID Methadone taper As needed medications Gabapentin for augmentation Attend groups and activities Supportive therapy and psychoeducation [place] for abstinence CBT for relapse prevention Encourage MAT Refer to rehab or IOP Attend self-help groups as well - Smoking Cessation Smoking Cessation Initiated: No
--- NOTE | 2017-08-28 11:52 | PCM.PYCHPN ---
Psychiatric Progress Note - Psychiatric Progress Note Patient seen today, length of contact: 16 min Patient Chief Complaint: " I think I need a medication for my bladder." Problems Identified/Issues Discussed: The pt is seen, chart reviewed, case discussed with staff. Staff stated the pateint signed a 48 hour note yesterday, 08/27, at 4:20pm Patient states she is suffering from mild withdrawal symptoms at this time. She is also reporting urinary incontinence. The pt is compliant with medications and reports no side-effects. Symptoms are improving but needs more time to stabilize. After care discussed, support and psychoeducation given. Medication Change: Yes (detox changes daily ) Medical Record Reviewed: Yes Mental Status Examination - Cognitive Function Orientation: Person, Place, Situation, Time Memory: Intact Attention: Poor Concentration: WNL Association: Loose Fund of Knowledge: WNL - Mood Mood: Depressed, Anxious - Affect Affect: Constricted, Depressed - Speech Speech: Soft - Formal Thought Process Formal Thought Process: No Impairment - Suicidal Ideation Suicidal Ideation: No - Homicidal Ideation Homicidal Ideation: No Goal/Treatment Plan - Goal/Treatment Plan Need for Continued Stay: Discharge may exacerbated symptoms, Severe functional impairment Progress Toward Problem(s) and Goals/Treatment Plan: Zoloft 50 mg PO Daily D/C Prolixin 10 mg PO BID Methadone taper Seroquil 50mg BID Oxybutynin 5mg TID Cogentin 1mg BID As needed medications Gabapentin for augmentation Attend groups and activities Supportive therapy and psychoeducation [place] for abstinence CBT for relapse prevention Encourage MAT Refer to rehab or IOP Attend self-help groups as well
--- NOTE | 2017-08-29 10:07 | PCM.PYCHPN ---
Psychiatric Progress Note - Psychiatric Progress Note Patient seen today, length of contact: 16 min Patient Chief Complaint: "I m not feeling good today. " Problems Identified/Issues Discussed: The pt is seen, chart reviewed, case discussed with staff. Patient reports depressed mood, poor sleep and anhidonia. Patient remained isolated, confined and withdrawn. Patient reports some improvement in her withdrawal symptoms but still reports cramps, headaches and back pains. The pt is compliant with medications and reports no side-effects. Symptoms are improving but needs more time to stabilize. After care discussed, support and psychoeducation given. Medication Change: Yes (detox changes daily ) Medical Record Reviewed: Yes Mental Status Examination - Cognitive Function Orientation: Person, Place, Situation, Time Memory: Intact Attention: Poor Concentration: WNL Association: Loose Fund of Knowledge: WNL - Mood Mood: Depressed, Anxious - Affect Affect: Constricted, Depressed - Speech Speech: Soft - Formal Thought Process Formal Thought Process: No Impairment - Suicidal Ideation Suicidal Ideation: No - Homicidal Ideation Homicidal Ideation: No Goal/Treatment Plan - Goal/Treatment Plan Need for Continued Stay: Discharge may exacerbated symptoms, Severe functional impairment Progress Toward Problem(s) and Goals/Treatment Plan: Zoloft 100 mg PO Daily Seroquel 50 mg PO daily [id number] mg PO QHS Methadone taper As needed medications Gabapentin for augmentation Attend groups and activities Supportive therapy and psychoeducation [place] for abstinence CBT for relapse prevention Encourage MAT Refer to rehab or IOP Attend self-help groups as well - Smoking Cessation Smoking Cessation Initiated: No
--- NOTE | 2017-08-30 16:56 | PCM.PYCHPN ---
Psychiatric Progress Note - Psychiatric Progress Note Patient seen today, length of contact: 15 minutes Patient Chief Complaint: I still feel withdrawal symptoms. Can I get more methadone. Problems Identified/Issues Discussed: Patient seen, chart reviewed, case discussed with the staff. Issues related to illness and treatment were discussed with the patient and staff. Reported compliant with treatment with no adverse affects. Staff reported that patient urinated and past feces in the room. Patient reported she still feels some withdrawal symptoms and was requesting more methadone. At the time of evaluation, patient was awake alert oriented 3, had no delusions , no auditory or visual hallucinations, no suicidal ideations or homicidal ideations. Aftercare discussed with the patient. Medical Problems: None reported Diagnostic Results: Reviewed DSM 5 Symptoms Update: Improving with treatment. Medication Change: No Medical Record Reviewed: Yes Mental Status Examination - Cognitive Function Orientation: Person, Place, Situation, Time Memory: Intact Attention: WNL Concentration: WNL Association: [facility] Fund of Knowledge: [facility] Decription of patient's judgement and insights: Fair - Mood Mood: Depressed, Anxious - Affect Affect: Other (Appropriate) - Speech Speech: Appropriate - Formal Thought Process Formal Thought Process: No Impairment Psychotic Thoughts and Behaviors: None - Suicidal Ideation Suicidal Ideation: No - Homicidal Ideation Homicidal Ideation: No Goal/Treatment Plan - Goal/Treatment Plan Need for Continued Stay: Remain at risks for inpatient hospitalization, Discharge may exacerbated symptoms, Severe functional impairment Progress Toward Problem(s) and Goals/Treatment Plan: Patient education. Supportive therapy. Imodium for diarrhea. Continue rest of the treatment as before. Patient will go to [facility] for follow-up care after discharge from the hospital. Estimated Date of D/C: 09/04/17 - Smoking Cessation Smoking Cessation Initiated: Yes
--- NOTE | 2017-08-31 13:13 | PCM.PYCHPN ---
Psychiatric Progress Note - Psychiatric Progress Note Patient seen today, length of contact: 15 minutes Patient Chief Complaint: I'm feeling better. Can you discharge me today. Problems Identified/Issues Discussed: Patient seen, chart reviewed, case discussed with the staff. Issues related to illness and treatment were discussed with the patient and staff. Reported compliant with treatment with no adverse affects. Patient reported she feels better and requesting for discharge. At the time of evaluation, patient was awake alert oriented 3, had no delusions , no auditory or visual hallucinations, no suicidal ideations or homicidal ideations. Aftercare discussed with the patient. Medical Problems: None reported Diagnostic Results: Reviewed DSM 5 Symptoms Update: Improving with treatment Medication Change: No Medical Record Reviewed: Yes Mental Status Examination - Cognitive Function Orientation: Person, Place, Situation, Time Memory: Intact Attention: WNL Concentration: WNL Association: WNL Fund of Knowledge: [facility] Decription of patient's judgement and insights: Fair - Mood Mood: Depressed (Less than before) - Affect Affect: Other (Appropriate) - Speech Speech: Appropriate - Formal Thought Process Formal Thought Process: No Impairment Psychotic Thoughts and Behaviors: None - Suicidal Ideation Suicidal Ideation: No - Homicidal Ideation Homicidal Ideation: No Goal/Treatment Plan - Goal/Treatment Plan Need for Continued Stay: Remain at risks for inpatient hospitalization, Discharge may exacerbated symptoms, Severe functional impairment Progress Toward Problem(s) and Goals/Treatment Plan: Patient education. Supportive therapy. Continue rest of the treatment as before. Patient will go to [facility] for follow-up care after discharge from the hospital. Estimated Date of D/C: 09/04/17 - Smoking Cessation Smoking Cessation Initiated: Yes
[2017-09-01 06:42] VITALS: BP 100/66; PULSE 53; RESP 14; TEMP 98.7; O2SAT 100
--- NOTE | 2017-09-01 10:13 | PCM.PYCHDC ---
Mental Status Examination - Mental Status Examination Orientation: Person, Place, Situation, Time Memory: Intact Mood: Neutral Affect: Constricted Speech: Soft Attention: WNL Concentration: WNL Association: WNL Fund of Knowledge: WNL Formal Thought Process: No Impairment Description of patient's judgement and insight: good, fair Psychotic Thoughts and Behaviors: denies any AVH Suicidal Ideation: No Current Homicidal Ideation?: No Discharge Summary - Discharge Note Reason for Hospitalization: Patient is a 57 year old female who is reporting with suicidal ideation and heroin use disorder. She is single, no children, and currently homeless. She states she is unemployed. Patient states she was feeling very depressed yesterday and tried to kill herself by using "a lot of heroin." She states the she has been feeling increasingly more depressed over the last few months due to her life situation of addiction/homelessness. She currently feels depressed but does not have thoughts of hurting herself or others. She states she has two prior attempts of suicide, the most recent in June 2017. She has been hospitalized 2 times in the past for suicidal ideation. She denies any therapy or psychiatric follow up outside of the hospital. She denies paranoia and hallucinations at this time. Patient states she also has used heroin since she was 31 years old. She uses 7 bags daily, intranasal. Her last time using was yesterday. Currently she is experiencing withdrawal symptoms of sweating, yawning, diarrhea, muscle cramping , anxiety. She states she occasionally drinks 2 pints of hard liquor and uses xanax sporadically. Patient states she "has been to too many detox programs to remember." She denies any prior rehab. Her plan following discharge is to enter a [facility] program to turn her life around. Consultations:: List each consultation separately and include: 1. Reason for request. 2. Findings. 3. Follow-up Summary of Hospital Course include:: 1. Description of specific treatment plan utilized for patients during their course of treatmen. 2. Summarize the time- course for resolution of acute symptoms and/or regressed behaviors. 3. Describe issues identified and worked on during hospitalization. 4. Describe medication utilized. 5. Describe medical problems identified and treated. 6. Reassessment of suicide risk Summary of Hospital Course: During the course of her stay, patient (pt) started progressively improving and she no longer remained anxious, depressed and suicidal. Her mood was getting better and she started attending groups and meetings and started socializing. The doses of her medications were maximized and patient denied any feelings of hopelessness, helplessness, and worthlessness, denied any problem with the sleep or appetite, denied suicidal ideation or homicidal ideation. Pt denied any auditory or visual hallucinations. Patient reported improvement in her mood and tolerated these medications very well and denied any side effects. Pt is to attend [facility] in [place] and will live with her friend. - Diagnosis (1) Major depression Current Visit: No Status: Acute (2) Opiate dependence Current Visit: No Status: Acute - Final Diagnosis (DSM 5) Condition upon Discharge: STABLE DSM 5: Major depressive disorder, recurrent severe without psychotic features General Anxiety Disorder Opioid use disorder, moderate Opioid use withdrawal Alcohol use disorder severe Disposition: HOME/ ROUTINE Follow-up Treatment Plan: Education: Pt was educated and counseled about the risks and benefits of taking and not taking medications. Pt was educated and counseled about the risks of drinking and abusing drugs. Pt was educated and counseled to go to the ER or call 911 if pt develop suicidal ideation or homicidal ideation, worsening of symptoms or severe side effects of the meds. Prescriptions/Medication Reconciliation: Gabapentin [Neurontin] 300 mg PO BID #60 cap Oxybutynin [Ditropan Tab] 5 mg PO TID #90 tab QUEtiapine [Seroquel] 100 mg PO HS #30 tab QUEtiapine [SEROquel] 50 mg PO DAILY #30 tab Sertraline [Zoloft] 100 mg PO DAILY #30 tab traZODone [Desyrel] 50 mg PO HS #30 tab - Smoking Cessation Smoking Cessation Medication prescribed: No - Antipsychotic Medications Pt discharged on 2 or more routine antipsychotic medications: No
== END 2017-09-01 13:25 | disposition home or self-care (01) | DRG 430 ==
LOC: C.ER 12:38 → C.5E 16:07
PROVIDERS: ADMIT Psychiatry & Neurology Psychiatry; ATTEND Psychiatry & Neurology Psychiatry
DX: F33.2 Major depressive disorder, recurrent severe without psychotic features (principal); R45.851 Suicidal ideations; F41.1 Generalized anxiety disorder; Z59.0 Homelessness; Z87.891 Personal history of nicotine dependence; I10 Essential (primary) hypertension; Z68.39 Body mass index [BMI] 39.0-39.9, adult; F10.10 Alcohol abuse, uncomplicated

== ENCOUNTER 2017-09-30 21:48 | Inpatient (IN) | payer MEDICAID, OTHER ==
[2017-09-30 21:48] VITALS: BMI 43.9
[2017-09-30 22:56] LABS: BASO % 0.8 % (0.0-2.0); EOS # 0.2 K/uL (0.0-0.7); EOS % 3.3 % (0.0-4.0); HEMOGLOBIN 11.7 g/dL (11.0-16.0); LYMPH # 2.6 K/uL (1.0-4.3); LYMPH % 44.8 % (20.0-40.0); MEAN CELL VOLUME 87.2 fL (81.0-99.0); MEAN CORPUSCULAR HEMOGLOBIN 28.5 pg (27.0-31.0); MEAN CORPUSCULAR HGB CONC 32.7 g/dL (33.0-37.0); MEAN PLATELET VOLUME 10.2 fL (7.2-11.7); MONO # 0.5 K/uL (0.0-0.8); MONO % 9.2 % (0.0-10.0); NEUT # 2.4 K/uL (1.8-7.0); NEUT % 41.9 % (50.0-75.0); NRBC % 0.1 % (0.0-2.0); RBC 4.09 Mil/uL (3.80-5.20); RED CELL DISTRIBUTION WIDTH 15.8 % (11.5-14.5); WHITE BLOOD COUNT 5.7 K/uL (4.8-10.8)
[2017-09-30 23:02] LABS: ALB/GLOB RATIO 1.3 (1.0-2.1); ALBUMIN 3.9 g/dL (3.5-5.0); ALT/SGPT 30 U/L (9-52); AST/SGOT 26 U/L (14-36); BLOOD UREA NITROGEN 11 mg/dL (7-17); CALCIUM 9.3 mg/dl (8.6-10.4); GFR AFRICAN-AMERICAN > 60; GFR NON-AFRICAN AMERICAN > 60
[2017-09-30 23:51] LABS: SQUAMOUS EPITHIAL 11 /hpf (0-5); URINE BACTERIA MANY (<OCC); URINE BILIRUBIN NEGATIVE (NEGATIVE); URINE BLOOD NEGATIVE (NEGATIVE); URINE CLARITY Hazy (Clear); URINE COLOR Yellow (YELLOW); URINE GLUCOSE (UA) NORMAL (Normal); URINE LEUKOCYTE ESTERASE 2+ Leu/uL (Negative); URINE NITRATE NEGATIVE (NEGATIVE); URINE PROTEIN 1+ mg/dL (NEGATIVE); URINE UROBILINOGEN NORMAL mg/dL (0.2-1.0)
--- NOTE | 2017-09-30 23:57 | C.PDOC ---
Time Seen by Provider: 09/30/17 22:31 Chief Complaint (Nursing): Psychiatric Evaluation History Per: Patient Onset/Duration Of Symptoms: Days Current Symptoms Are (Timing): Still Present Suicide/Self Injury Attempted (Context): None Severity: Moderate Associated Symptoms: Paranoia, Other (Auditory hallucinations). denies: Suicidal Thoughts, Suicidal Plan Additional History Per: Prior Records Past Medical History Reviewed: Historical Data, Nursing Documentation, Vital Signs Vital Signs: Last Vital Signs Temp 98.1 F 09/30/17 21:57 Pulse 88 09/30/17 21:57 Resp 16 09/30/17 21:57 BP 159/90 H 09/30/17 21:57 Pulse Ox 98 09/30/17 23:56 - Medical History PMH: Anxiety, Arthritis, Bipolar Disorder, Depression, Hepatitis (Hepatitis A), HTN, Pulmonary Embolism, Schizophrenia Surgical History: Hernia Repair - [facility] Procedures DETOXIFICATION SERVICES FOR SUBSTANCE ABUSE TREATMENT (05/24/17) GROUP SUPERVISOR SOLDERING FOR SUBSTANCE ABUSE, COGNITIVE BEHAVIORAL (02/13/17) GROUP PSYCHOTHERAPY (02/13/17) INDIV PSYCHOTHERAPY FOR SUBSTANCE ABUSE TREATMENT, SUPPORT (05/24/17) MEDICATION MANAGEMENT (04/06/16) MEDS MGMT FOR SUBSTANCE ABUSE TREATMENT, METHADONE MAINT (04/06/16) Family History: States: Unknown Family Hx - Social History Hx Tobacco Use: Yes Hx Alcohol Use: Yes Hx Substance Use: No - Immunization History Hx Tetanus Toxoid Vaccination: No Hx Influenza Vaccination: No Hx Pneumococcal Vaccination: No Review Of Systems Except As Marked, All Systems Reviewed And Found Negative. Constitutional: Negative for: Fever, Weakness Cardiovascular: Negative for: Chest Pain Respiratory: Negative for: Shortness of Breath, Hemoptysis Gastrointestinal: Negative for: Vomiting, Abdominal Pain Genitourinary: Positive for: Frequency Musculoskeletal: Negative for: Neck Pain Skin: Negative for: Rash Neurological: Negative for: Weakness, Numbness Psych: Positive for: Psychosis Physical Exam - Physical Exam Appears: Non-toxic, No Acute Distress Skin: Normal Color, Warm, Dry, No Rash Head: Atraumatic, Normacephalic Eye(s): bilateral: PERRL, EOMI Neck: Normal ROM, Supple Cardiovascular: Rhythm Regular Respiratory: Normal Breath Sounds, No Accessory Muscle Use Gastrointestinal/Abdominal: Soft, No Tenderness Back: No CVA Tenderness Extremity: Normal ROM Neurological/Psych: Oriented x3, Normal Motor, Normal Sensation ED Course And Treatment - Laboratory Results Result Diagrams: 09/30/17 22:47 09/30/17 22:47 Interpretation Of Abnormal: UTI O2 Sat by Pulse Oximetry: 98 Pulse Ox Interpretation: Normal Medical Decision Making Medical Decision Making: Pt incidentally has UTI. Will sent urine culture and start treatment with Macrobid. 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
[2017-10-01 00:17] LABS: PHENCYCLIDINE, UR NEGATIVE (NEGATIVE)
[2017-10-01 00:30] LABS: BARBITURATES, UR NEGATIVE (NEGATIVE)
[2017-10-01 00:57] LABS: BENZODIAZEPINES, UR POSITIVE (NEGATIVE); OPIATES, UR POSITIVE (NEGATIVE)
--- NOTE | 2017-10-01 04:06 | PCM.BM ---
<Celine Langston - Last Filed: 10/01/17 04:03> Treatment Plan Problems - Problems identified on initial assessmt Auditory, Hallucination Date Initiated: 10/01/17 Time Initiated: 03:35 Assessment reference: NA Status: Active Suicidal Ideation Date Initiated: 10/01/17 Time Initiated: 03:35 Assessment reference: NA Status: Active Substance Abuse Date Initiated: 10/01/17 Time Initiated: 03:35 Assessment reference: NA Status: Active Treatment assets and liabiliti Patient Assests: cooperative, self-reliant, negotiates basic needs, cognitively intact Patient Liabilities: live alone, financial problems, poor support system, substance abuse, medical problems - Milieu Protocol Maintain good personal hygiene: daily Encourage regular showers, daily Remind patient to perform daily oral care, daily Assist patient to perform ADL's Maintain personal safety: every shift Educate patient to report safety concerns to staff, every shift Monitor environment for contraband/sharps Medication safety: Monitor for expected outcome, potential side effects: every shift, Assess barriers to learning: every shift, Assess readiness for medication education: every shift <Rebeca Webb - Last Filed: 10/01/17 11:01> Family Contact Family involvement: Famliy/SO not involved - Goals for Treatment Patient goals for treatment: "I need methadone for my withdrawals." Discharge/Continuing Care - Education Needs Education Needs: Patient Medication, Patient Placement options, Patient Community resources - Discharge Discharge Criteria: Tolerates medication w/o severe side effects, No longer exhibiting s/s of withdrawal, Reduction of target symptoms Discharge to:: [facility] - Treatment Team Participation Discussed with Family/SO: No Was Patient/Family/SO present at Treatment Team Meeting: Yes
[2017-10-01 09:21] VITALS: O2SAT 98
--- NOTE | 2017-10-01 09:51 | PCM.PSYCH ---
Initial Psychiatric Evaluation - Initial Psychiatric Evaluation Type of Admission: Voluntary Legal Status: Capacity Chief Complaint (in patient's own words): I am hearing voices.' History of Present Illness and Precipitating Events: Patient is a 57-year-old -[place] woman single, unemployed and homeless , with a history of schizoaffective disorder depressive roel and opioid use disorder came to the ED with depressed mood and c/o "hearing voices and seeing things". As per the ED note, pt appeared very disorganized and internally preoccupied. She reported the following: "I spoke to [place] Rose and Artemio;" She came to me because I'm god;" She was raised from the , and she's not an actual person;" I was really [place], and I was god;" The person I'm living with was eating out of the garbage and turned into a dog and then turned into a plastic bag;" The devil came into the baserment and kept on harassing me;" Pt would later state she came to the ED secondary to complications from her hip replacement surgery; Pt has a prior psychiatric hx, and she was last admitted to [facility] on 08/25/17 secondary to suicidal attempt (od on heroin) and c/o hallucinations.' Pt reported daily thoughts of suicide without plan, but indicated she did have suicide intent. Pt has a prior hx of suicide attempts. Several yrs ago, Pt od on pills. In 2015, Pt od on Advil, And on 08/25/17, Pt OD on heroin. Pt states depressed mood, feelings of hopelessness and helplessness. She also reports insomnia, and loss of interest. Patient also reports using 10-15 bags of heroin daily last use was yesterday. Pt reports of experiencing withdrawal s /s nausea, abdominal pain, joint pains, agitation and myalgias. PMH: Weakness of legs/walking difficulty Current Medications: Active Medications Generic Name Dose Route Start Last Admin Trade Name Freq PRN Reason Stop Dose Admin Pneumococcal Polyvalent Vaccine 0.5 ml 10/03/17 10:20 Pneumovax 23 Vaccine IM 10/03/17 10:21 .ONCE ONE Past Psychiatric History - Past Psychiatric History Previous Treatment History: Inpatient Pertinent Medical Hx (Current Medical&Sleep Prob, Allergies): Allergies Allergy/AdvReac Type Severity Reaction Status Date / Time FISH Allergy Verified 05/24/17 06:53 latex Allergy Verified 05/24/17 06:53 Latex, Natural Rubber Allergy Verified 05/24/17 06:53 PORK Allergy Verified 05/24/17 06:53 No Known Home Med 09/30/17 Review of Systems - Review of Systems Systems not reviewed;Unavailable: Psychotic All systems: reviewed and no additional remarkable complaints except - Musculoskeletal Musculoskeletal: Muscle Weakness (Lower extremities bilaterally) - Psychiatric Psychiatric: Anxiety, Auditory Hallucinations, Confusion, Depression, Hallucinations, Irritability, Paranoia, Suicidal Ideation, Visual Hallucinations Mental Status Examination - Personal Presentation Personal Presentation: Looks stated age, Impairment in gait (Ambulating via wheelchair) - Affect Affect: Constricted, Depressed - Motor Activity Motor Activity: Psychomotor Agitation - Reliability in Providing Information Reliability in Providing Information: Poor, due to alteration in thoughts, Poor , due to altered mood - Speech Speech: Disorganized - Mood Mood: Depressed, Anxious - Formal Thought Process Formal Thought Process: Hallucinations, Delusions, Paranoia, Loosening of associations, Flight of ideas - Hallucinations/Delusions Hallucinations: Visual, Auditory - Obsessions/Compulsions Obsessions: No Compulsions: No - Cognitive Functions Orientation: Person, Place, Situation, Time Sensorium: Alert Attention/Concentration: Attentive Abstract Thinking: Harlan Estimate of Intelligence: Below average Judgement: Imparied, as evidence by: Poor judgement, Imparied, as evidence by: Lack of insight into illness - Risk Risk: Suicidal, Withdrawal, Falls, Diminished functioning - Limitations Limitations: Living alone DSM 5 DX - DSM 5 DSM 5 Diagnosis: Schizoaffective disorder depressed type Opioid use disorder severe Opioid withdrawal - Recommended/Plan of Treatment Treatment Recommendations and Plan of Treatment: Schizoaffective disorder bipolar/depressed type CBT Psychoeducation Supportive therapy, group therapy, individual therapy Neurontin 100 mg by mouth 3 times a day Trazodone 50 mg by mouth daily at bedtime Zolfot 50 mg PO Daily Opioid use disorder severe CBT Psychoeducation Supportive therapy, individual therapy Use [place] for abstinence Opioid withdrawal CBT Psychoeducation Supportive therapy, individual therapy Clonidine when necessary Methadone taper Start prn meds Alcohol use disorder severe CBT Psychoeducation Supportive therapy, individual therapy Use [place] for abstinence Weakness of legs/walking difficulty Pt ambulating by wheel chair - Smoking Cessation Smoking Cessation Initiated: No
[2017-10-02] MEDS: Aluminum Hydroxide/Magnesium Hydroxide Susp (30 mL) PO PRN (10:54)
--- NOTE | 2017-10-02 22:53 | PCM.PYCHPN ---
Psychiatric Progress Note - Psychiatric Progress Note Patient seen today, length of contact: 15 min Patient Chief Complaint: I am hearing voices.' Problems Identified/Issues Discussed: Patient seen and evaluated, chart reviewed and discussed with the nurse. Patient remained disorganized and internally preoccupied. She still reports of hearing voices and still appears paranoid and delusional. Patient reports withdrawal symptoms including nausea, headaches, cramps and sweating. She reports depressed mood and feelings of hopelessness and helplessness. Patient remained isolated, confined and withdrawn. Patient is compliant with medications and denies any side effects. Symptoms are improving but need more time to stabilize. Support and psychoeducation given. Medication Change: Yes (methadone taper) Medical Record Reviewed: Yes Mental Status Examination - Cognitive Function Orientation: Person, Place, Situation, Time Memory: Intact Attention: WNL Concentration: Poor Association: Loose Fund of Knowledge: Poor - Mood Mood: Depressed, Anxious - Affect Affect: Constricted, Depressed - Speech Speech: Soft - Formal Thought Process Formal Thought Process: Hallucinations, Delusions, Paranoia, Loosening of associations - Suicidal Ideation Suicidal Ideation: No - Homicidal Ideation Homicidal Ideation: No Goal/Treatment Plan - Goal/Treatment Plan Need for Continued Stay: Severe depression anxiety, Severe functional impairment Progress Toward Problem(s) and Goals/Treatment Plan: Schizoaffective disorder bipolar/depressed type CBT Psychoeducation Supportive therapy, group therapy, individual therapy Neurontin 300 mg by mouth 3 times a day Trazodone 50 mg by mouth daily at bedtime Start Zolfot with plan to maximize the dose with respect to the depressive symptoms Opioid use disorder severe CBT Psychoeducation Supportive therapy, individual therapy Use [place] for abstinence Opioid withdrawal CBT Psychoeducation Supportive therapy, individual therapy Clonidine when necessary Methadone taper Start prn meds Alcohol use disorder severe CBT Psychoeducation Supportive therapy, individual therapy Use [place] for abstinence Weakness of legs/walking difficulty Pt ambulating by wheel chair - Smoking Cessation Smoking Cessation Initiated: No
[2017-10-03] MEDS: Aluminum Hydroxide/Magnesium Hydroxide Susp (30 mL) PO PRN (06:57)
[2017-10-03] MEDS ORDERED: Influenza Vaccine 60 mcg/0.5 mL SYR (4YR UP) IM ONE (10:00)
[2017-10-03] MEDS ORDERED: Pneumococcal 23-Valent Vaccine IM ONE (10:20)
[2017-10-04] MEDS: Aluminum Hydroxide/Magnesium Hydroxide Susp (30 mL) PO PRN (10:34)
--- NOTE | 2017-10-04 23:46 | PCM.PYCHPN ---
Psychiatric Progress Note - Psychiatric Progress Note Patient seen today, length of contact: 15 min Patient Chief Complaint: I am hearing voices.' Problems Identified/Issues Discussed: Patient seen and evaluated, chart reviewed and discussed with the nurse. Patient remained disorganized and internally preoccupied. She still reports of hearing voices and still appears paranoid and delusional. Patient reports withdrawal symptoms including nausea, headaches, cramps and sweating. She reports depressed mood and feelings of hopelessness and helplessness. Patient remained isolated, confined and withdrawn. Patient is compliant with medications and denies any side effects. Symptoms are improving but need more time to stabilize. Support and psychoeducation given. Medication Change: Yes (methadone taper) Medical Record Reviewed: Yes Mental Status Examination - Cognitive Function Orientation: Person, Place, Situation, Time Memory: Intact Attention: WNL Concentration: Poor Association: Loose Fund of Knowledge: Poor - Mood Mood: Depressed, Anxious - Affect Affect: Constricted, Depressed - Speech Speech: Soft - Formal Thought Process Formal Thought Process: Hallucinations, Delusions, Paranoia, Loosening of associations - Suicidal Ideation Suicidal Ideation: No - Homicidal Ideation Homicidal Ideation: No Goal/Treatment Plan - Goal/Treatment Plan Need for Continued Stay: Severe depression anxiety, Severe functional impairment Progress Toward Problem(s) and Goals/Treatment Plan: Schizoaffective disorder bipolar/depressed type CBT Psychoeducation Supportive therapy, group therapy, individual therapy Neurontin 300 mg by mouth 3 times a day Trazodone 50 mg by mouth daily at bedtime Start Zolfot with plan to maximize the dose with respect to the depressive symptoms Opioid use disorder severe CBT Psychoeducation Supportive therapy, individual therapy Use [place] for abstinence Opioid withdrawal CBT Psychoeducation Supportive therapy, individual therapy Clonidine when necessary Methadone taper Start prn meds Alcohol use disorder severe CBT Psychoeducation Supportive therapy, individual therapy Use [place] for abstinence Weakness of legs/walking difficulty Pt ambulating by wheel chair
[2017-10-05] MEDS: Aluminum Hydroxide/Magnesium Hydroxide Susp (30 mL) PO PRN (10:58)
--- NOTE | 2017-10-05 12:36 | PCM.PYCHPN ---
Psychiatric Progress Note - Psychiatric Progress Note Patient seen today, length of contact: 15 min Patient Chief Complaint: I am hearing voices.' Problems Identified/Issues Discussed: Patient seen and evaluated, chart reviewed and discussed with the nurse. Patient remained disorganized and internally preoccupied. She still reports of hearing voices and still appears paranoid and delusional. Patient reports withdrawal symptoms including nausea, headaches, cramps and sweating. She reports depressed mood and feelings of hopelessness and helplessness. Patient remained isolated, confined and withdrawn. Patient is compliant with medications and denies any side effects. Symptoms are improving but need more time to stabilize. Support and psychoeducation given. Medication Change: Yes (methadone taper) Medical Record Reviewed: Yes Mental Status Examination - Cognitive Function Orientation: Person, Place, Situation, Time Memory: Intact Attention: WNL Concentration: Poor Association: Loose Fund of Knowledge: Poor - Mood Mood: Depressed, Anxious - Affect Affect: Constricted, Depressed - Speech Speech: Soft - Formal Thought Process Formal Thought Process: Hallucinations, Delusions, Paranoia, Loosening of associations - Suicidal Ideation Suicidal Ideation: No - Homicidal Ideation Homicidal Ideation: No Goal/Treatment Plan - Goal/Treatment Plan Need for Continued Stay: Severe depression anxiety, Severe functional impairment Progress Toward Problem(s) and Goals/Treatment Plan: Schizoaffective disorder bipolar/depressed type CBT Psychoeducation Supportive therapy, group therapy, individual therapy Neurontin 300 mg by mouth 3 times a day Trazodone 50 mg by mouth daily at bedtime Start Zolfot with plan to maximize the dose with respect to the depressive symptoms Opioid use disorder severe CBT Psychoeducation Supportive therapy, individual therapy Use [place] for abstinence Opioid withdrawal CBT Psychoeducation Supportive therapy, individual therapy Clonidine when necessary Methadone taper Start prn meds Alcohol use disorder severe CBT Psychoeducation Supportive therapy, individual therapy Use [place] for abstinence Weakness of legs/walking difficulty Pt ambulating by wheel chair
--- NOTE | 2017-10-06 10:00 | PCM.PYCHPN ---
Psychiatric Progress Note - Psychiatric Progress Note Patient seen today, length of contact: 15 min Patient Chief Complaint: I am hearing voices.' Problems Identified/Issues Discussed: Patient seen and evaluated, chart reviewed and discussed with the nurse. Patient remained disorganized and internally preoccupied. She still reports of hearing voices and still appears paranoid and delusional. Patient reports withdrawal symptoms including nausea, headaches, cramps and sweating. She reports depressed mood and feelings of hopelessness and helplessness. Patient remained isolated, confined and withdrawn. Patient is compliant with medications and denies any side effects. Symptoms are improving but need more time to stabilize. Support and psychoeducation given. Medication Change: Yes (methadone taper) Medical Record Reviewed: Yes Mental Status Examination - Cognitive Function Orientation: Person, Place, Situation, Time Memory: Intact Attention: WNL Concentration: Poor Association: Loose Fund of Knowledge: Poor - Mood Mood: Depressed, Anxious - Affect Affect: Constricted, Depressed - Speech Speech: Soft - Formal Thought Process Formal Thought Process: Hallucinations, Delusions, Paranoia, Loosening of associations - Suicidal Ideation Suicidal Ideation: No - Homicidal Ideation Homicidal Ideation: No Goal/Treatment Plan - Goal/Treatment Plan Need for Continued Stay: Severe depression anxiety, Severe functional impairment Progress Toward Problem(s) and Goals/Treatment Plan: Schizoaffective disorder bipolar/depressed type CBT Psychoeducation Supportive therapy, group therapy, individual therapy Neurontin 300 mg by mouth 3 times a day Trazodone 50 mg by mouth daily at bedtime Start Zolfot with plan to maximize the dose with respect to the depressive symptoms Opioid use disorder severe CBT Psychoeducation Supportive therapy, individual therapy Use [place] for abstinence Opioid withdrawal CBT Psychoeducation Supportive therapy, individual therapy Clonidine when necessary Methadone taper Start prn meds Alcohol use disorder severe CBT Psychoeducation Supportive therapy, individual therapy Use [place] for abstinence Weakness of legs/walking difficulty Pt ambulating by wheel chair
[2017-10-07 09:37] VITALS: BP 148/84; PULSE 97; RESP 19; TEMP 98.3
--- NOTE | 2017-10-07 10:29 | PCM.PYCHDC ---
Mental Status Examination - Mental Status Examination Orientation: Person, Place, Situation, Time Memory: Intact Mood: Neutral Affect: Constricted Speech: Soft Attention: WNL Concentration: WNL Association: WNL Fund of Knowledge: WNL Formal Thought Process: No Impairment Description of patient's judgement and insight: GOOD, FAIR Psychotic Thoughts and Behaviors: Denies any AVH Suicidal Ideation: No Current Homicidal Ideation?: No Discharge Summary - Discharge Note Consultations:: List each consultation separately and include: 1. Reason for request. 2. Findings. 3. Follow-up Summary of Hospital Course include:: 1. Description of specific treatment plan utilized for patients during their course of treatmen. 2. Summarize the time- course for resolution of acute symptoms and/or regressed behaviors. 3. Describe issues identified and worked on during hospitalization. 4. Describe medication utilized. 5. Describe medical problems identified and treated. 6. Reassessment of suicide risk Summary of Hospital Course: Patient is a 57-year-old -[place] woman single, unemployed and homeless , with a history of schizoaffective disorder depressive roel and opioid use disorder came to the ED with depressed mood and c/o "hearing voices and seeing things". As per the ED note, pt appeared very disorganized and internally preoccupied. She reported the following: "I spoke to [place] Rose and Artemio;" She came to me because I'm god;" She was raised from the , and she's not an actual person;" I was really [place], and I was god;" The person I'm living with was eating out of the garbage and turned into a dog and then turned into a plastic bag;" The devil came into the baserment and kept on harassing me;" Pt would later state she came to the ED secondary to complications from her hip replacement surgery; Pt has a prior psychiatric hx, and she was last admitted to [facility] on 08/25/17 secondary to suicidal attempt (od on heroin) and c/o hallucinations.' Pt reported daily thoughts of suicide without plan, but indicated she did have suicide intent. Pt has a prior hx of suicide attempts. Several yrs ago, Pt od on pills. In 2015, Pt od on Advil, And on 08/25/17, Pt OD on heroin. Pt states depressed mood, feelings of hopelessness and helplessness. She also reports insomnia, and loss of interest. Patient also reports using 10-15 bags of heroin daily last use was yesterday. Pt reports of experiencing withdrawal s /s nausea, abdominal pain, joint pains, agitation and myalgias. PMH: Weakness of legs/walking difficulty - Final Diagnosis (DSM 5) Condition upon Discharge: STABLE Disposition: HOME/ ROUTINE Follow-up Treatment Plan: Schizoaffective disorder bipolar/depressed type CBT Psychoeducation Supportive therapy, group therapy, individual therapy Neurontin 300 mg by mouth 3 times a day Trazodone 50 mg by mouth daily at bedtime Start Zolfot with plan to maximize the dose with respect to the depressive symptoms Opioid use disorder severe CBT Psychoeducation Supportive therapy, individual therapy Use [place] for abstinence Opioid withdrawal CBT Psychoeducation Supportive therapy, individual therapy Clonidine when necessary Methadone taper Start prn meds Alcohol use disorder severe CBT Psychoeducation Supportive therapy, individual therapy Use [place] for abstinence Weakness of legs/walking difficulty Pt ambulating by wheel chair Prescriptions/Medication Reconciliation: Gabapentin [Neurontin] 300 mg PO BID #60 cap Oxybutynin [Ditropan Tab] 10 mg PO TID #90 tab Sertraline [Zoloft] 100 mg PO DAILY #60 tab traZODone [Desyrel] 50 mg PO HS PRN #30 tab PRN Reason: Insomnia
== END 2017-10-07 12:17 | disposition home or self-care (01) | DRG 430 ==
LOC: C.ER 21:48 → C.5E 10-01 01:53
PROVIDERS: ADMIT Psychiatry & Neurology Psychiatry; ATTEND Psychiatry & Neurology Psychiatry
PROC: HZ2ZZZZ Detoxification Services for Substance Abuse Treatment (ICD-10-PCS; principal; 2017-10-01)
PROC: GZHZZZZ Group Psychotherapy (ICD-10-PCS; 2017-10-01)
PROC: HZ52ZZZ Individual Psychotherapy for Substance Abuse Treatment, Cognitive-Behavioral (ICD-10-PCS; 2017-10-01)
PROC: HZ42ZZZ Group Counseling for Substance Abuse Treatment, Cognitive-Behavioral (ICD-10-PCS; 2017-10-01)
PROC: HZ59ZZZ Individual Psychotherapy for Substance Abuse Treatment, Supportive (ICD-10-PCS; 2017-10-01)
PROC: HZ56ZZZ Individual Psychotherapy for Substance Abuse Treatment, Psychoeducation (ICD-10-PCS; 2017-10-01)
PROC: HZ46ZZZ Group Counseling for Substance Abuse Treatment, Psychoeducation (ICD-10-PCS; 2017-10-01)
PROC: GZ58ZZZ Individual Psychotherapy, Cognitive-Behavioral (ICD-10-PCS; 2017-10-01)
PROC: GZ56ZZZ Individual Psychotherapy, Supportive (ICD-10-PCS; 2017-10-01)
DX: F25.0 Schizoaffective disorder, bipolar type (principal); F11.23 Opioid dependence with withdrawal; N39.0 Urinary tract infection, site not specified; Z59.0 Homelessness; F10.20 Alcohol dependence, uncomplicated; F41.9 Anxiety disorder, unspecified; F31.9 Bipolar disorder, unspecified; I10 Essential (primary) hypertension; Z86.711 Personal history of pulmonary embolism; F17.210 Nicotine dependence, cigarettes, uncomplicated; Y90.0 Blood alcohol level of less than 20 mg/100 ml; R53.1 Weakness; R26.2 Difficulty in walking, not elsewhere classified; G47.00 Insomnia, unspecified